=== PATIENT | male | born 1980 | race Caucasian/White ===

== ENCOUNTER 2021-01-13 09:42 | Observation (INO) | payer OTHER ==
[2021-01-13] MEDS ORDERED: SODIUM CHLORIDE 0.9% 500 ML INFUS.BAG IV ONE (10:26)
[2021-01-13 11:20] LABS: BASO % 2.1 % (0-2.0); EOS % 1.6 % (0-4.5); HEMATOCRIT 47.4 % (35.4-49); HEMOGLOBIN 15.9 GM/dl (11.7-16.9); LYMPH % 20.3 % (8-40); MCH 30.9 pg (25.7-33.7); MCHC 33.6 g/dl (32.0-35.9); MEAN PLT VOLUME 8.6 fl (7.5-11.1); MONO % 5.9 % (3.8-10.2); NEUT % 70.1 % (42.8-82.8); PLATELET COUNT 311 10^3/uL (134-434); RBC 5.15 M/mm3 (4.00-5.60); RDW 12.2 % (11.9-15.9); WHITE BLOOD COUNT 7.4 K/mm3 (4.0-10.8)
[2021-01-13 11:35] LABS: ACTIVATED PTT 26.4 SECONDS (25.2-36.5)
[2021-01-13 11:40] LABS: INR 1.1 (0.82-1.09); PROTHROMBIN TIME (PATIENT) 12.2 SEC (10.2-13.0)
[2021-01-13 12:07] LABS: ANION GAP 10 MMOL/L (8-16); CALCIUM 8.7 mg/dl (8.5-10); CHLORIDE 104 mmol/L (98-107); CO2 23 mmol/L (21-32); CREATININE 0.7 mg/dl (0.55-1.3); GLUCOSE,RANDOM 152 mg/dl (74-106); SODIUM 137 mmol/L (136-145)
[2021-01-13 12:09] LABS: ALK PHOS 65 U/L (45-117); BILIRUBIN,TOTAL 0.7 mg/dl (0.2-1); SGOT/AST 30 U/L (15-37); SGPT/ALT 46 U/L (13-61)
[2021-01-13] MEDS ORDERED: ASPIRIN 81 MG CHEWABLE TABLETS ONE (13:36)
[2021-01-13] MEDS ORDERED: ASPIRIN 81 MG CHEWABLE TABLETS PO ONE (13:59)
[2021-01-13] MEDS ORDERED: METOPROLOL TARTRATE 25 MG TABLET (FP) PO ONE (16:25)
[2021-01-13] MEDS ORDERED: ENOXAPARIN NA (PORCINE) 40 MG/0.4 ML DISP.SYRIN SQ SCH (16:30)
[2021-01-13] MEDS ORDERED: INSULIN SLIDING SCALE (NOVOLOG) 1 VIAL SQ SCH (16:30)
[2021-01-13] MEDS ORDERED: LACTATED RINGERS SOLUTION 1,000 ML/1,000 ML INFUS.BAG IV SCH (17:00)
[2021-01-13 19:43] LABS: N-TERMINAL BNP 7.2 pg/ml (5-125)
[2021-01-13 20:28] VITALS: BMI 26.1
[2021-01-13] MEDS ORDERED: ATORVASTATIN CA 40 MG TABLET (FP) PO SCH (22:00)
[2021-01-14 06:12] VITALS: BP 125/76; PULSE 75; TEMP 98.3
[2021-01-14 08:19] LABS: BASO % 1.3 % (0-2.0); EOS % 2.3 % (0-4.5); HEMATOCRIT 43.2 % (35.4-49); HEMOGLOBIN 15.1 GM/dl (11.7-16.9); LYMPH % 24.6 % (8-40); MEAN CELL VOLUME 91.5 fl (80-96); MEAN PLT VOLUME 8.5 fl (7.5-11.1); MONO % 7.8 % (3.8-10.2); PLATELET COUNT 263 10^3/uL (134-434); RBC 4.72 M/mm3 (4.00-5.60); RDW 12.1 % (11.9-15.9)
[2021-01-14 08:26] LABS: CREATININE 0.7 mg/dl (0.55-1.3); MAGNESIUM 2.1 mg/dL (1.8-2.4); PHOSPHOROUS 4.4 mg/dl (2.5-4.9); TOT PROT 6.9 g/dl (6.4-8.2)
[2021-01-14 08:28] LABS: BILIRUBIN,DIRECT 0.1 mg/dL (0.0-0.2)
[2021-01-14] MEDS ORDERED: ASPIRIN 81 MG CHEWABLE TABLETS PO ONE (13:05)
== END 2021-01-14 12:12 | disposition home or self-care (01) ==
LOC: FER 09:42 → FM/S 13:06
PROVIDERS: ADMIT Internal Medicine; ATTEND Nurse Practitioner Family
PROC: 3E023GC Introduction of Other Therapeutic Substance into Muscle, Percutaneous Approach (ICD-10-PCS; principal; 2021-01-13)
PROC: 3E0337Z Introduction of Electrolytic and Water Balance Substance into Peripheral Vein, Percutaneous Approach (ICD-10-PCS; 2021-01-13)
DX: R55 Syncope and collapse (principal); R53.1 Weakness; E11.9 Type 2 diabetes mellitus without complications; Z86.16 Personal history of COVID-19; R42 Dizziness and giddiness; R11.0 Nausea; R63.0 Anorexia; R77.8 Other specified abnormalities of plasma proteins
CPT/HCPCS: 36415; 71046-TC-FY; 71275-TC; 80048; 80053; 80061; 80076; 82550; 82962; 83036; 83735; 83880; 84100; 84443; 84484; 85025; 85379; 85610; 85651; 85730; 86140; 93005; 99285-25; C9803; G0378; Q9967; U0003; U0005